=== PATIENT | female | born 2000 | race Hispanic/Latino ===

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

== ENCOUNTER 2021-03-01 01:00 | Emergency (ER) | payer SELFPAY | END 2021-03-01 02:03 | disposition left against medical advice (07) | LOC: ERS 01:00 | DX: R10.31 Right lower quadrant pain (principal); R00.0 Tachycardia, unspecified | CPT/HCPCS: 99284 ==